=== PATIENT | female | born 1995 | race American Indian/Alaskan Native ===

== ENCOUNTER 2020-09-24 23:04 | Emergency (ER) | payer MEDICAID ==
[2020-09-25 02:33] VITALS: BP 118/72
--- NOTE | 2020-09-25 02:37 | Emergency Department Report ---
ED General Adult HPI - General Stated complaint: WORM IN STOOL PUI?: No Source: patient - History of Present Illness Initial comments: Patient is a A1 24-year-old -[place] female with no past medical history presents to the ED for evaluation after expelling "a worm" in her stool about 2 hours ago. Patient states that she has a history of constipation and has not had a bowel movement in 2 weeks and tonight had a small bowel movement which was complicated by long stringy tissues that are dark red in color which she suspected was a worm. Patient denies abdominal pain, nausea, vomiting, dizziness, syncope, chest pain, shortness of breath, hematemesis, hematochezia, fever, chills, dysuria, urinary frequency and urgency or headache. MD Complaint: Worm in the stool; constipation -: Sudden, hour(s) (2) Location: abdomen Radiation: non-radiation Severity scale (0 -10): 0 Quality: dull Consistency: intermittent Improves with: none Worsens with: none Associated Symptoms: denies other symptoms. denies: confusion, chest pain, cough, diaphoresis, headaches, loss of appetite, malaise, nausea/vomiting, rash, shortness of breath, syncope Treatments Prior to Arrival: none - Related Data Previous Rx's Medication Instructions Recorded Last Taken Type Docusate Sodium [Colace] 100 mg PO BID PRN #60 capsule 09/25/20 Unknown Rx Magnesium Citrate 296 ml PO ONCE #1 bottle 09/25/20 Unknown Rx ED Review of Systems ROS: Stated complaint: WORM IN STOOL Other details as noted in HPI Constitutional: denies: chills, fever Eyes: denies: eye pain, eye discharge, vision change ENT: denies: ear pain, throat pain Respiratory: denies: cough, shortness of breath, wheezing Cardiovascular: denies: chest pain, palpitations Endocrine: no symptoms reported Gastrointestinal: constipation, other (Worms in the stool). denies: abdominal pain, nausea, diarrhea Genitourinary: denies: urgency, dysuria, discharge Musculoskeletal: denies: back pain, joint swelling, arthralgia Skin: denies: rash, lesions Neurological: denies: headache, weakness, paresthesias Psychiatric: denies: anxiety, depression Hematological/Lymphatic: denies: easy bleeding, easy bruising ED Past Medical Hx - Medications Home Medications: Home Medications Medication Instructions Recorded Confirmed Last Taken Type Docusate Sodium [Colace] 100 mg PO BID PRN #60 capsule 09/25/20 Unknown Rx Magnesium Citrate 296 ml PO ONCE #1 bottle 09/25/20 Unknown Rx ED Physical Exam - General General appearance: alert, in no apparent distress - Head Head exam: Present: atraumatic, normocephalic, normal inspection - Eye Eye exam: Present: normal appearance, PERRL, EOMI Pupils: Present: normal accommodation - ENT ENT exam: Present: normal exam, normal orophraynx, mucous membranes moist, TM's normal bilaterally, normal external ear exam - Neck Neck exam: Present: normal inspection, full ROM - Respiratory Respiratory exam: Present: normal lung sounds bilaterally. Absent: respiratory distress, wheezes, rales, stridor, chest wall tenderness, accessory muscle use, decreased breath sounds, prolonged expiratory, other - Cardiovascular Cardiovascular Exam: Present: regular rate, normal rhythm, normal heart sounds. Absent: systolic murmur, diastolic murmur, rubs, gallop - GI/Abdominal GI/Abdominal exam: Present: soft, normal bowel sounds. Absent: tenderness, guarding, rebound, hyperactive bowel sounds, hypoactive bowel sounds, organomegaly, mass - Rectal Rectal exam: Present: other (Rectal exam deferred, patient declined) - Extremities Exam Extremities exam: Present: normal inspection, full ROM, normal capillary refill - Back Exam Back exam: Present: normal inspection, full ROM. Absent: tenderness, CVA tenderness (R), muscle spasm, paraspinal tenderness, vertebral tenderness - Neurological Exam Neurological exam: Present: alert, oriented X3, CN II-XII intact, normal gait, reflexes normal - Psychiatric Psychiatric exam: Present: normal affect, normal mood - Skin Skin exam: Present: warm, dry, intact, normal color. Absent: rash ED Medical Decision Making - Medical Decision Making This is a A1 24-year-old -[place] female with no past medical history presents to the ED for evaluation after expelling "a worm" in her stool about 2 hours ago. Patient states that she has a history of constipation and has not had a bowel movement in 2 weeks and tonight had a small bowel movement which was complicated by long stringy tissues that are dark red in color which she suspected was a worm. In the ED, patient is alert and oriented x3 and is not in distress. Patient is hemodynamically stable. Patient presented to the ED with a picture that she took after having a bowel movement which showed tissue debris is from her rectum and no evidence of any intestinal worms. Patient was therefore discharged home on medications for constipation and advised to drink plenty of fluids and encouraged to increase high-fiber in her diet to improve on her constipation. Patient was advised to follow-up with her primary care physician in 5 to 7 days for reevaluation or return to the ED immediately if symptoms get worse. - Differential Diagnosis Intestinal worms; constipation; hemorrhoids; Critical care attestation.: If time is entered above; I have spent that time in minutes in the direct care of this critically ill patient, excluding procedure time. ED Disposition Clinical Impression: Constipation Qualifiers: Constipation type: other constipation type Qualified Code(s): K59.09 - Other constipation Disposition: DC- TO HOME OR SELFCARE Is pt being admited?: No Does the pt Need Aspirin: No Condition: Stable Instructions: Constipation, Adult, [id number], Chronic Constipation Additional Instructions: Increase high-fiber intake in your diet, drink plenty of fluids and follow-up with your primary care physician in 5 to 7 days for reevaluation. Return to the ED immediately if symptoms get worse. Prescriptions: Docusate Sodium [Colace] 100 mg PO BID PRN #60 capsule PRN Reason: Constipation Magnesium Citrate 296 ml PO ONCE #1 bottle Referrals: [facility] [Provider Group] - 3-5 Days Time of Disposition: 02:38 Print Language: PORTUGUESE
== END 2020-09-25 03:07 | disposition home or self-care (01) ==
LOC: ED 23:04
DX: K59.00 Constipation, unspecified (principal); Z79.899 Other long term (current) drug therapy
CPT/HCPCS: 99282

== ENCOUNTER 2021-02-19 07:11 | Emergency (ER) | payer MEDICAID ==
[2021-02-19 07:22] VITALS: BP 127/72
--- NOTE | 2021-02-19 09:21 | Emergency Department Report ---
ED Abdominal Pain HPI - General Chief Complaint: Abdominal Pain Stated Complaint: STOMACH PAIN AFTER Time Seen by Provider: 02/19/21 09:12 Source: patient Mode of arrival: Ambulatory Limitations: No Limitations - History of Present Illness Initial Comments: 25-year-old obese female presents to the ER complaining of abdominal pain started around 1 AM last night patient states the pain was severe she took ibuprofen around 6 AM and did get relief from the pain she denies any nausea vomiting fever or chills. Patient reports having an 3 days ago at [facility] [place]. She reports ongoing vaginal bleeding she states that it has not worsened and the flow has gotten less each day. She denies any urinary symptoms she denies chest pain shortness of breath. AB 2 -: During the night Location: diffuse Radiation: none Migration to: no migration Severity scale (0 -10): 7 Quality: aching Consistency: now resolved Improves With: medication (IBUPROFEN) Worsens With: nothing Context: recent surgery/procedure ( ) Associated Symptoms: denies other symptoms. denies: nausea, vomiting, fever, chills, constipation, dysuria, hematemesis, hematochezia, melena, hematuria, anorexia, syncope - Related Data Previous Rx's Medication Instructions Recorded Last Taken Type Docusate Sodium [Colace] 100 mg PO BID PRN #60 capsule 09/25/20 Unknown Rx Magnesium Citrate 296 ml PO ONCE #1 bottle 09/25/20 Unknown Rx Allergies Allergy/AdvReac Type Severity Reaction Status Date / Time No Known Allergies Allergy Verified 02/19/21 11:45 ED Review of Systems ROS: Stated complaint: STOMACH PAIN AFTER Other details as noted in HPI Comment: All other systems reviewed and negative Constitutional: denies: chills, fever, malaise Respiratory: denies: cough Cardiovascular: denies: chest pain, palpitations, syncope Endocrine: denies: excessive sweating Gastrointestinal: abdominal pain. denies: nausea, vomiting, diarrhea, constipation, hematemesis, melena, hematochezia Genitourinary: denies: urgency, dysuria, frequency, hematuria, discharge Musculoskeletal: denies: back pain, arthralgia Skin: denies: rash, lesions, change in color, change in hair/nails, pruritus Neurological: denies: headache, weakness, numbness, paresthesias, confusion Psychiatric: denies: as per HPI, anxiety, depression, auditory hallucinations, visual hallucinations, homicidal thoughts ED Past Medical Hx - Past Medical History Previous Medical History?: No - Surgical History Past Surgical History?: No - Social History Smoking Status: Never Smoker Substance Use Type: None - Medications Home Medications: Home Medications Medication Instructions Recorded Confirmed Last Taken Type Docusate Sodium [Colace] 100 mg PO BID PRN #60 capsule 09/25/20 Unknown Rx Magnesium Citrate 296 ml PO ONCE #1 bottle 09/25/20 Unknown Rx ED Physical Exam - General Limitations: No Limitations General appearance: alert, in no apparent distress - Head Head exam: Present: atraumatic - Eye Eye exam: Present: normal appearance - ENT ENT exam: Present: normal exam - Neck Neck exam: Present: normal inspection - Respiratory Respiratory exam: Present: normal lung sounds bilaterally. Absent: respiratory distress, wheezes, rales, rhonchi - Cardiovascular Cardiovascular Exam: Present: regular rate, normal heart sounds - GI/Abdominal GI/Abdominal exam: Present: soft, normal bowel sounds. Absent: distended, tenderness, guarding, rebound - External exam: Present: normal external exam - Extremities Exam Extremities exam: Present: normal inspection - Back Exam Back exam: Present: normal inspection - Neurological Exam Neurological exam: Present: alert, oriented X3 - Psychiatric Psychiatric exam: Present: normal affect - Skin Skin exam: Present: warm, dry, intact, normal color ED Course Vital Signs 02/19/21 07:21 Temperature 98.1 F Pulse Rate 74 Respiratory 18 Rate Blood Pressure 127/72 [Right] O2 Sat by Pulse 100 Oximetry - Reevaluation(s) Reevaluation #1: 02/19/21 09:29 pt resting comfortably in room ED Medical Decision Making - Lab Data Result diagrams: 02/19/21 10:02 02/19/21 10:02 - Radiology Data Radiology results: report reviewed ULTRASOUND PELVIS OB, TRANSVAGINAL INDICATION / CLINICAL INFORMATION: S/P 2 days ago now with abd pain r/o POC. TECHNIQUE: Transvaginal. Duplex Color Doppler used: Yes. COMPARISON: None available FINDINGS: UTERUS: Measures 10.7 x 7.8 x 9.3 cm and is mildly enlarged. Mildly heterogeneous appearance with a 3.9 cm heterogeneously echogenic focus adjacent to the endometrium, at the fundus. Endometrial thickness is 14 mm in this premenopausal patient. RIGHT ADNEXA: No significant ovarian cyst or mass. Normal color Doppler blood flow. LEFT ADNEXA: Ovary is not well visualized. No significant abnormality. URINARY BLADDER: No significant abnormality. FREE FLUID: None. ADDITIONAL FINDINGS: None. IMPRESSION: 1. No visualized products of conception in the endometrium. 2. Approximately 4 cm heterogeneous focus at the uterine fundus likely represents a fibroid. Signer Name: Chaz Valerio MD - Medical Decision Making 25-year-old female reports to the emergency room with abdominal pain after having an 2 days ago her pain was relieved with ibuprofen her bleeding is minimal ultrasound report shows no products of conception. Her labs including urine are within normal limits. Patient has an appointment on the with [facility] for follow-up Critical Care Time: No Critical care attestation.: If time is entered above; I have spent that time in minutes in the direct care of this critically ill patient, excluding procedure time. ED Disposition Clinical Impression: Abdominal pain Qualifiers: Abdominal location: generalized Qualified Code(s): R10.84 - Generalized abdominal pain Fibroid uterus Qualifiers: Uterine leiomyoma location: unspecified location Qualified Code(s): D25.9 - Leiomyoma of uterus, unspecified Disposition: DC-01 TO HOME OR SELFCARE Is pt being admited?: No Does the pt Need Aspirin: No Condition: Stable Instructions: Abdominal Pain, Adult, [id number], Abdominal Pain (ED) Additional Instructions: Continue to take ibuprofen as needed for pain. Follow-up with [facility] as scheduled on 02/26/2021. Return to the emergency room for any worsening symptoms such as worsening abdominal pain fever or increased vaginal bleeding.ULTRASOUND PELVIS OB, TRANSVAGINAL FINDINGS: UTERUS: Measures 10.7 x 7.8 x 9.3 cm and is mildly enlarged. Mildly heterogeneous appearance with a 3.9 cm heterogeneously echogenic focus adjacent to the endometrium, at the fundus. Endometrial thickness is 14 mm in this premenopausal patient. RIGHT ADNEXA: No significant ovarian cyst or mass. Normal color Doppler blood flow. LEFT ADNEXA: Ovary is not well visualized. No significant abnormality. URINARY BLADDER: No significant abnormality. FREE FLUID: None. ADDITIONAL FINDINGS: None. IMPRESSION: 1. No visualized products of conception in the endometrium. 2. Approximately 4 cm heterogeneous focus at the uterine fundus likely represents a fibroid. Signer Name: Chaz Valerio MD Referrals: PRIMARY CARE, [Primary Care Provider] - 3-5 Days Time of Disposition: 11:58
[2021-02-19 10:43] LABS: Hematocrit 37.2 % (30.3-42.9); Hemoglobin 12.7 gm/dl (10.1-14.3); Mean Corpuscular HGB Conc 34 % (30-34); Mean Corpuscular Volume 79 fl (79-97); Platelet Count 242 K/mm3 (140-440); Red Blood Count 4.73 M/mm3 (3.65-5.03)
[2021-02-19 10:57] LABS: Red Cell Distribution Width 24.5 % (13.2-15.2)
[2021-02-19 10:58] LABS: Bacteria,Urine 1+ /HPF (Negative); Bilirubin,Urine NEG (Negative); Blood,Urine LG (Negative); Color,Urine Straw (Yellow); Mucus,Urine FEW /HPF; Protein,Urine <15 mg/dL mg/dL (Negative); Urobilinogen,Urine < 2.0 mg/dL (<2.0)
[2021-02-19 11:06] LABS: BUN/Creatinine Ratio 10; Blood Urea Nitrogen 8 mg/dL (7-17); Hemolysis Index 18
--- NOTE | 2021-02-19 11:32 | Ultrasound Report ---
ULTRASOUND PELVIS OB, TRANSVAGINAL INDICATION / CLINICAL INFORMATION: S/P 2 days ago now with abd pain r/o POC. TECHNIQUE: Transvaginal. Duplex Color Doppler used: Yes. COMPARISON: None available FINDINGS: UTERUS: Measures 10.7 x 7.8 x 9.3 cm and is mildly enlarged. Mildly heterogeneous appearance with a 3 .9 cm heterogeneously echogenic focus adjacent to the endometrium, at the fundus. Endometrial thickne ss is 14 mm in this premenopausal patient. RIGHT ADNEXA: No significant ovarian cyst or mass. Normal color Doppler blood flow. LEFT ADNEXA: Ovary is not well visualized. No significant abnormality. URINARY BLADDER: No significant abnormality. FREE FLUID: None. ADDITIONAL FINDINGS: None. IMPRESSION: 1. No visualized products of conception in the endometrium. 2. Approximately 4 cm heterogeneous focus at the uterine fundus likely represents a fibroid. Signer Name: Chaz Valerio MD Signed: 02/19/2021 11:27 AM Workstation Name: [id number]
== END 2021-02-19 12:11 | disposition home or self-care (01) ==
LOC: ED 07:11
DX: D25.9 Leiomyoma of uterus, unspecified (principal); R10.84 Generalized abdominal pain; Z79.899 Other long term (current) drug therapy
CPT/HCPCS: 36415; 76817; 80048; 81001; 85027

== ENCOUNTER 2021-05-10 08:48 | Emergency (ER) | payer MEDICAID | END 2021-05-10 10:02 | LOC: ED 08:48 | DX: R11.2 Nausea with vomiting, unspecified (principal); Z53.21 Procedure and treatment not carried out due to patient leaving prior to being seen by health care provider ==

== ENCOUNTER 2022-01-13 07:13 | Emergency (ER) | payer MEDICAID ==
--- NOTE | 2022-01-13 08:34 | Emergency Department Report ---
ED General Adult HPI - General Chief complaint: Syncope Stated complaint: SYNCOPE Time Seen by Provider: 01/13/22 07:46 Source: patient, EMS Mode of arrival: Stretcher Limitations: No Limitations - History of Present Illness Initial comments: 26 yo F with h/o Idiopathic Intracranial hypertension who present with seizure episode that was witnessed by her boyfriend. According to EMS patient was postictal when they arrived at her house. Pt reported to be in her usual state of health last night before going to sleep only to wake up in the ambulance. Pt boyfriend described the episode to the EMS that she had generalized body shakiness with her eye rolled backward. She reports her LMP to be 4/28 and was normal. No other modifying or associated factors. Severity scale (0 -10): 0 - Related Data Previous Rx's Medication Instructions Recorded Last Taken Type Docusate Sodium [Colace] 100 mg PO BID PRN #60 capsule 09/25/20 Unknown Rx Magnesium Citrate 296 ml PO ONCE #1 bottle 09/25/20 Unknown Rx Allergies Allergy/AdvReac Type Severity Reaction Status Date / Time No Known Allergies Allergy Verified 01/13/22 07:24 ED Review of Systems ROS: Stated complaint: SYNCOPE Other details as noted in HPI Comment: All other systems reviewed and negative Neurological: headache, other (siezure ) ED Past Medical Hx - Social History Smoking Status: Never Smoker Substance Use Type: None - Medications Home Medications: Home Medications Medication Instructions Recorded Confirmed Last Taken Type Docusate Sodium [Colace] 100 mg PO BID PRN #60 capsule 09/25/20 Unknown Rx Magnesium Citrate 296 ml PO ONCE #1 bottle 09/25/20 Unknown Rx ED Physical Exam - General Limitations: No Limitations General appearance: alert, in no apparent distress - Head Head exam: Present: atraumatic, normocephalic, normal inspection - Eye Eye exam: Present: normal appearance Pupils: Present: normal accommodation - ENT ENT exam: Present: normal exam, normal orophraynx, mucous membranes moist, TM's normal bilaterally - Neck Neck exam: Present: normal inspection, full ROM. Absent: tenderness, meningismus - Respiratory Respiratory exam: Present: normal lung sounds bilaterally. Absent: respiratory distress, accessory muscle use - Cardiovascular Cardiovascular Exam: Present: regular rate, normal rhythm, normal heart sounds - GI/Abdominal GI/Abdominal exam: Present: soft, tenderness, normal bowel sounds - Extremities Exam Extremities exam: Present: normal inspection, full ROM, normal capillary refill - Back Exam Back exam: Present: normal inspection - Neurological Exam Neurological exam: Present: alert, oriented X3 - Psychiatric Psychiatric exam: Present: normal affect, normal mood - Skin Skin exam: Present: warm, intact ED Course Vital Signs 01/13/22 01/13/22 01/13/22 07:20 07:33 07:45 Temperature 98.4 F Pulse Rate 115 H 109 H 106 H Respiratory 17 29 H 27 H Rate Blood Pressure 122/71 Blood Pressure 117/76 [Left] O2 Sat by Pulse 97 99 100 Oximetry 01/13/22 01/13/22 01/13/22 07:47 08:06 08:15 Temperature Pulse Rate 116 H Respiratory 16 24 Rate Blood Pressure 135/76 124/71 Blood Pressure [Left] O2 Sat by Pulse 100 99 Oximetry 01/13/22 01/13/22 01/13/22 08:31 08:45 09:01 Temperature Pulse Rate 109 H 106 H 107 H Respiratory 24 23 24 Rate Blood Pressure 124/71 124/71 111/66 Blood Pressure [Left] O2 Sat by Pulse 100 99 100 Oximetry 01/13/22 01/13/22 01/13/22 09:15 09:31 09:45 Temperature Pulse Rate 109 H 108 H 108 H Respiratory 29 H 23 27 H Rate Blood Pressure 111/66 111/66 111/66 Blood Pressure [Left] O2 Sat by Pulse 100 98 98 Oximetry 01/13/22 01/13/22 01/13/22 10:01 10:15 10:33 Temperature Pulse Rate 105 H 97 H Respiratory 25 H 25 H Rate Blood Pressure 119/71 119/71 119/71 Blood Pressure [Left] O2 Sat by Pulse 98 99 94 Oximetry 01/13/22 01/13/22 01/13/22 10:47 11:01 11:19 Temperature Pulse Rate 94 H 90 107 H Respiratory 25 H 22 19 Rate Blood Pressure 119/71 119/71 119/71 Blood Pressure [Left] O2 Sat by Pulse 99 99 100 Oximetry 01/13/22 01/13/22 01/13/22 11:31 11:45 12:01 Temperature Pulse Rate 94 H 91 H 89 Respiratory 20 18 22 Rate Blood Pressure 119/71 119/71 119/71 Blood Pressure [Left] O2 Sat by Pulse 99 99 98 Oximetry 01/13/22 01/13/22 01/13/22 12:15 12:31 12:45 Temperature Pulse Rate 86 85 83 Respiratory 21 19 20 Rate Blood Pressure 119/71 119/71 119/71 Blood Pressure [Left] O2 Sat by Pulse 98 99 97 Oximetry 01/13/22 01/13/22 01/13/22 13:01 13:15 13:31 Temperature Pulse Rate 83 85 79 Respiratory 19 17 16 Rate Blood Pressure 119/71 119/71 119/71 Blood Pressure [Left] O2 Sat by Pulse 98 98 97 Oximetry 01/13/22 13:45 Temperature Pulse Rate 81 Respiratory 25 H Rate Blood Pressure 119/71 Blood Pressure [Left] O2 Sat by Pulse 98 Oximetry - Reevaluation(s) Reevaluation #1: 01/13/22 08:35 here with what appeared to be her first seizure unprovoked -- will go ahead and rule out any correctable cause such as infectious process or electrolytes abnormalities-- CBC, CMP, UA and UDS-- and Urine hCG. 01/13/22 08:37 CT brain for any intracranial abnormality-- Reevaluation #2: 01/13/22 08:40 Given Keppra 1 g to prevent another recurrence of seizure and IV fluid for hydration 1 L NS. Reevaluation #3: 01/13/22 14:09 Patient reports feeling much better after giving the Keppra 1 g to stabilize presumed seizure. Work up labs reviewed to be reassuring and with normal limit. Pt will be discharged home to follow up with her PCP for further evaluation and treatment. I do not believe that this patient needs to be started on antiseizure medicine at this point since this is the first seizure in the last 5 years. Pt warned to call or return to ED if symptoms recur or worsen 01/13/22 14:12 ED Medical Decision Making - Lab Data Result diagrams: 01/13/22 08:38 01/13/22 08:38 - EKG Data -: EKG Interpreted by Me EKG shows normal: sinus rhythm Rate: tachycardia - EKG Data Interpretation: normal EKG 01/13/22 08:41 Noted with normal sinus tachycardia at a rate of [address] changes noted Critical care attestation.: If time is entered above; I have spent that time in minutes in the direct care of this critically ill patient, excluding procedure time. ED Disposition Clinical Impression: Seizure Disposition: 01 HOME / SELF CARE / HOMELESS Is pt being admited?: No Does the pt Need Aspirin: No Condition: Stable Instructions: Seizure, Adult, [id number] Additional Instructions: Call and schedule a follow up with your doctor in the next 3-5 days for progress Increase your daily fluid to help your hydration Please do not hesitate to call or return to emergency room if your symptoms worsen Referrals: PRIMARY CARE, [Primary Care Provider] - 3-5 Days Time of Disposition: 14:12
[2022-01-13] MEDS ORDERED: levETIRAcetam 1000 MG/NS 0.75% 1,000 MG/100 ML BAG IV ONE (08:39)
[2022-01-13] MEDS ORDERED: SODIUM CHLORIDE 0.9% 1000 ML 1,000 ML IV ONE (08:39)
[2022-01-13 08:46] LABS: Basophils # (Auto) 0.1 K/mm3 (0.0-0.1); Basophils % (Auto) 0.9 % (0.0-1.8); Eosinophils % (Auto) 0.6 % (0.0-4.3); Hematocrit 36.9 % (30.3-42.9); Hemoglobin 11.8 gm/dl (10.1-14.3); Lymphocytes # (Auto) 1.4 K/mm3 (1.2-5.4); Lymphocytes % (Auto) 19.2 % (13.4-35.0); Mean Corpuscular HGB Conc 32 % (30-34); Mean Corpuscular Volume 81 fl (79-97); Monocytes # (Auto) 0.8 K/mm3 (0.0-0.8); Monocytes % (Auto) 11.3 % (0.0-7.3); Platelet Count 315 K/mm3 (140-440); Red Blood Count 4.56 M/mm3 (3.65-5.03); Red Cell Distribution Width 16.3 % (13.2-15.2)
[2022-01-13 08:56] LABS: INR 0.91 (0.87-1.13)
[2022-01-13 08:57] LABS: Partial Thromboplastin Time 28.8 Sec. (24.2-36.6)
[2022-01-13 09:09] LABS: Alanine Aminotransferase 16 units/L (7-56); Albumin 4.2 g/dL (3.9-5); BUN/Creatinine Ratio 12; Blood Urea Nitrogen 11 mg/dL (7-17); Calcium 9.4 mg/dL (8.4-10.2); Hemolysis Index 23
--- NOTE | 2022-01-13 10:16 | Electrocardiograph Report ---
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
[2022-01-13 11:11] LABS: Amphetamine Screen,Urine Negative; Benzodiazepines Screen,Urine Negative; Cannabinoid Screen,Urine Negative; Cocaine Screen,Urine Negative; Methadone Screen,Urine Negative; Opiate Screen,Urine Negative
[2022-01-13 11:17] LABS: Bacteria,Urine 1+ /HPF (Negative); Bilirubin,Urine NEG (Negative); Blood,Urine NEG (Negative); Color,Urine Yellow (Yellow); Mucus,Urine FEW /HPF; Protein,Urine <15 mg/dL mg/dL (Negative); Urobilinogen,Urine < 2.0 mg/dL (<2.0)
[2022-01-13 11:23] LABS: HCG Qualitative,Urine Negative (Negative)
--- NOTE | 2022-01-13 11:28 | Cat Scan Report ---
NONENHANCED CT SCAN OF THE HEAD: INDICATION / CLINICAL INFORMATION: 26 years Female; first seizure. TECHNIQUE: Routine CT head without contrast. All CT scans at this location are performed using CT dos e reduction for ALARA by means of automated exposure control. COMPARISON: None. FINDINGS: BRAIN / INTRACRANIAL CONTENTS: No acute hemorrhage, mass effect, midline shift, hydrocephalus, or acu te, large territorial infarct. No chronic infarct or focal atrophy. Normal brain volume and ventricul ar/sulcal size for age. No significant white matter abnormality. Given the history of seizures, no space taking lesion especially in the frontal and temporal lobes; h ippocampi normal bilaterally CRANIOCERVICAL JUNCTION: No significant abnormality. ORBITS: No significant abnormality of visualized orbits. SINUSES / MASTOIDS: No significant abnormality of the visualized paranasal sinuses or mastoid air duglas ls. ADDITIONAL FINDINGS: None. IMPRESSION: No acute focal parenchymal lesion Signer Name: Luisana Porter MD Signed: 01/13/2022 11:24 AM Workstation Name: [id number]
[2022-01-13 14:52] VITALS: BP 105/69
== END 2022-01-13 14:51 | disposition home or self-care (01) ==
LOC: ED 07:13
DX: R56.9 Unspecified convulsions (principal); R79.1 Abnormal coagulation profile; R94.6 Abnormal results of thyroid function studies; Z79.899 Other long term (current) drug therapy
CPT/HCPCS: 36415; 70450; 80053; 80307; 81001; 81025; 84443; 85025; 85610; 85730; 93005; 96365; 99284; J1953; J7030

== ENCOUNTER 2022-03-01 00:54 | Emergency (ER) | payer MEDICAID ==
--- NOTE | 2022-03-01 08:04 | Emergency Department Report ---
HPI - General Chief Complaint: Allergic Reaction Time Seen by Provider: 03/01/22 07:46 ED Past Medical Hx - Social History Smoking Status: Never Smoker Substance Use Type: None - Medications Home Medications: Home Medications Medication Instructions Recorded Confirmed Last Taken Type Docusate Sodium [Colace] 100 mg PO BID PRN #60 capsule 09/25/20 Unknown Rx Magnesium Citrate 296 ml PO ONCE #1 bottle 09/25/20 Unknown Rx ED Review of Systems ROS: Stated complaint: Other details as noted in HPI Physical Exam - Physical Exam Vital Signs: Vital Signs 03/01/22 02:56 Temperature 98.0 F Pulse Rate 90 Respiratory 18 Rate Blood Pressure 130/85 [Left] O2 Sat by Pulse 99 Oximetry ED Course Vital Signs 03/01/22 02:56 Temperature 98.0 F Pulse Rate 90 Respiratory 18 Rate Blood Pressure 130/85 [Left] O2 Sat by Pulse 99 Oximetry Critical care attestation.: If time is entered above; I have spent that time in minutes in the direct care of this critically ill patient, excluding procedure time. ED Disposition Condition: Stable Referrals: PRIMARY CARE [Primary Care Provider] - 3-5 Days
[2022-03-01] MEDS ORDERED: methylPREDNISolone Sod Succinate 125 MG/2 ML INJ IM ONE (08:10)
[2022-03-01] MEDS ORDERED: diphenhydrAMINE 25 MG CAP PO ONE (08:10)
[2022-03-01] MEDS ORDERED: FAMOTIDINE 20 MG TAB PO ONE (08:10)
--- NOTE | 2022-03-01 09:28 | Emergency Department Report ---
ED Allergic Reaction HPI - General Chief complaint: Allergic Reaction Time Seen by Provider: 03/01/22 07:46 Source: patient Mode of arrival: Ambulatory Limitations: No Limitations - History of Present Illness Initial Comments: 26-year-old black female with a past medical history of mitral valve prolapse and seizures presents to the emergency department for evaluation of insect bite. She states that she was bitten several times to her left posterior thigh last night by a small brown bug with legs. She states that after she was bitten she developed itching all over along with hives then she later developed tightness in her chest and shortness of breath, so she decided to come to the emergency department for evaluation. She states that she also noticed pain and swelling to her right axillary area. She did not take any medication for her symptoms but states that since she has been in the waiting room, that symptoms have mostly resolved except for small amount of itching shortness of breath and pain and swelling to the right axillary area. She states that she has a known history of about allergy to insect bites but has never had a reaction like this. MD Complaint: allergic reaction, hives -: Sudden, hour(s) Exposure: insect bite Symptoms: rash, itching, difficulty breathing, nausea, abdominal pain. denies: facial swelling, lip swelling, difficulty swallowing, hoarseness, syncopy, vomiting Severity: moderate Treatment Prior to Arrival: none Previous Allergy History: none - Related Data Previous Rx's Medication Instructions Recorded Last Taken Type Docusate Sodium [Colace] 100 mg PO BID PRN #60 capsule 09/25/20 Unknown Rx Magnesium Citrate 296 ml PO ONCE #1 bottle 09/25/20 Unknown Rx EPINEPHrine [Epipen 2-Julian] 0.3 mg IJ ONCE #1 pack 03/01/22 Unknown Rx hydrOXYzine PAMOATE [Vistaril] 25 mg PO Q6HR PRN #30 capsule 03/01/22 Unknown Rx Allergies Allergy/AdvReac Type Severity Reaction Status Date / Time No Known Allergies Allergy Verified 01/13/22 07:24 ED Review of Systems ROS: Stated complaint: Other details as noted in HPI Comment: All other systems reviewed and negative Constitutional: denies: chills, fever Eyes: denies: vision change ENT: denies: congestion Respiratory: shortness of breath. denies: cough Cardiovascular: chest pain. denies: palpitations, dyspnea on exertion, ort hopnea Gastrointestinal: abdominal pain, nausea. denies: vomiting, diarrhea, hematemesis, melena, hematochezia Genitourinary: denies: urgency, dysuria, frequency Musculoskeletal: denies: back pain Skin: rash, pruritus Neurological: denies: headache, weakness, numbness, paresthesias, abnormal gait ED Past Medical Hx - Social History Smoking Status: Never Smoker Substance Use Type: None - Medications Home Medications: Home Medications Medication Instructions Recorded Confirmed Last Taken Type Docusate Sodium [Colace] 100 mg PO BID PRN #60 capsule 09/25/20 Unknown Rx Magnesium Citrate 296 ml PO ONCE #1 bottle 09/25/20 Unknown Rx EPINEPHrine [Epipen 2-Julian] 0.3 mg IJ ONCE #1 pack 03/01/22 Unknown Rx hydrOXYzine PAMOATE [Vistaril] 25 mg PO Q6HR PRN #30 capsule 03/01/22 Unknown Rx ED Physical Exam - General Limitations: No Limitations General appearance: alert, in no apparent distress - Head Head exam: Present: atraumatic, normocephalic - Eye Eye exam: Present: normal appearance. Absent: conjunctival injection - ENT ENT exam: Present: normal exam, normal orophraynx - Expanded ENT Exam Expanded Mouth exam: Present: normal external inspection, tongue normal. Absent: drooling, muffled voice Throat exam: Negative: tonsillar erythema, tonsillomegaly - Neck Neck exam: Present: normal inspection, full ROM. Absent: tenderness, lymphadenopathy - Respiratory Respiratory exam: Present: normal lung sounds bilaterally. Absent: respiratory distress, wheezes, rales, rhonchi, stridor, chest wall tenderness - Cardiovascular Cardiovascular Exam: Present: regular rate, normal heart sounds - Expanded Cardiovascular Exam Expanded 1 - Noted to have swollen and tender lymph node area. No erythema or drainage noted. - GI/Abdominal GI/Abdominal exam: Present: soft, normal bowel sounds. Absent: distended, tenderness, guarding, rebound, rigid - Extremities Exam Extremities exam: Present: normal inspection, tenderness, normal capillary refill. Absent: pedal edema, joint swelling, calf tenderness - Back Exam Back exam: Present: normal inspection. Absent: CVA tenderness (R), CVA tenderness (L), vertebral tenderness - Neurological Exam Neurological exam: Present: alert, oriented X3, normal gait - Psychiatric Psychiatric exam: Present: normal affect, normal mood - Skin Skin exam: Present: warm, dry, intact, normal color ED Course Vital Signs 03/01/22 02:56 Temperature 98.0 F Pulse Rate 90 Respiratory 18 Rate Blood Pressure 130/85 [Left] O2 Sat by Pulse 99 Oximetry - Reevaluation(s) Reevaluation #1: 03/01/22 09:24 Is 10, shortness of breath, and chest pain resolved. Right axillary lymph node improved, and patient states that she feels much better. ED Medical Decision Making - EKG Data EKG shows normal: sinus rhythm Rate: normal - EKG Data Interpretation: no acute changes, normal EKG - Medical Decision Making 26-year-old black female with a past medical history of mitral valve prolapse and seizures presents to the emergency department for evaluation of insect bite. She states that she was bitten several times to her left posterior thigh last night by a small brown bug with legs. She states that after she was bitten she developed itching all over along with hives then she later developed tightness in her chest and shortness of breath, so she decided to come to the emergency department for evaluation. She states that she also noticed pain and swelling to her right axillary area. She did not take any medication for her symptoms but states that since she has been in the waiting room, that symptoms have mostly resolved except for small amount of itching shortness of breath and pain and swelling to the right axillary area. She states that she has a known history of about allergy to insect bites but has never had a reaction like this. Physical exam unremarkable except for swelling and tenderness likely secondary to swollen lymph node in right axillary area. Patient was treated with Solu- Medrol 120 mg IM x1, Pepcid 20 mg p.o., and Benadryl 25 mg p.o. while in the emergency department and had significant improvement in her symptoms. She states that she felt much better. She was discharged home with prescription for Vistaril to use as needed for itching along with an EpiPen and advised to follow-up with an mender hand for further evaluation and management. She was advised to return to the emergency department as needed. She verbalized understanding of and agreement with plan of care. Critical care attestation.: If time is entered above; I have spent that time in minutes in the direct care of this critically ill patient, excluding procedure time. ED Disposition Clinical Impression: Allergic reaction to insect bite Disposition: HOME / SELF CARE / HOMELESS Is pt being admited?: No Does the pt Need Aspirin: No Condition: Stable Instructions: Anaphylactic Reaction, Adult, How to Use an Auto-Injector Pen, Insect Bite, Adult, [id number] Additional Instructions: Take medications as prescribed. Follow-up with primary care provider or mender hand for further evaluation and management. Return to the emergency department as needed. Prescriptions: EPINEPHrine [Epipen 2-Julian] 0.3 mg IJ ONCE #1 pack hydrOXYzine PAMOATE [Vistaril] 25 mg PO Q6HR PRN #30 capsule PRN Reason: Itching Referrals: THERESA NEWBY MD [Staff Physician] - 3-5 Days BEAU DORANTES MD [Staff Physician] - 3-5 Days Forms: Work/School Release Form(ED) Time of Disposition: 09:28
[2022-03-01 09:57] VITALS: BP 121/72
--- NOTE | 2022-03-02 19:02 | Electrocardiograph Report ---
[facility] Test Date: 2022-03-01 Test Time: 01:04:50 Pat Name: PATI AGUSTIN Department: Room: Gender: F [employer]: DAVIAN : 1995 Requested By: ALINA SCOTT Order Number: [id number] Reading MD: Rubens Ramirez Measurements Intervals [place] Rate: 85 P: 34 ME: 148 QRS: 28 QRSD: 92 T: 3 QT: 377 QTc: 448 Interpretive Statements Sinus rhythm Compared to ECG 01/13/2022 07:41:49 Sinus rate has slowed Electronically Signed On 03-02-2022 19:01:39 EDT by Rubens Ramirez
== END 2022-03-01 09:56 | disposition home or self-care (01) ==
LOC: ED 00:54
DX: T78.49XA Other allergy, initial encounter (principal); T63.481A Toxic effect of venom of other arthropod, accidental (unintentional), initial encounter; X58.XXXA Exposure to other specified factors, initial encounter; Y92.89 Other specified places as the place of occurrence of the external cause
CPT/HCPCS: 93005; 96372; 99282; J2930